=== PATIENT | male | born 1985 | race Caucasian/White ===

== ENCOUNTER 2016-09-21 15:50 | Emergency (ER) | payer SELFPAY ==
[~2016-09-21] VITALS: Wt 88.8 kg
[2016-09-21] MEDS ORDERED: ONDANSETRON (ODT) 4 MG TAB ODT STA (16:28)
[2016-09-21] MEDS ORDERED: KETOROLAC 30 MG INJ IM STA (16:28)
[2016-09-21] MEDS ORDERED: HYDROCODONE/APAP (5/325) TAB PO ONE (16:30)
[2016-09-21] MEDS ORDERED: PROPARACAINE 0.5% 15 ML OPH BOTH EYES ONE (16:30)
[2016-09-21] MEDS ORDERED: FLUORESCEIN STRIP BOTH EYES ONE (16:30)
--- NOTE | 2016-09-21 16:34 | ERA ---
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 Patient has a chief complaint of headache 12 hours. Patient has a history of headaches in the past. Patient denies worse headache of life, thunderclap headache or recent trauma. denies change in behavior or altered mental status. Patient is also complaining of getting dust/wood in his eyes at work. Patient states that it feels like there is a foreign body in his eyes at this time. Patient has not had symptoms like this before. Patient denies change in vision or eye pain. ROS All systems reviewed and are negative except as per history of present illness. Medications Home Meds Active Scripts Gentamicin Sulfate* (Gentamicin Sulfate* Ophth) 0.3% - 5 Ml Drops, 1 DROP BOTH EYES Q4 for 14 Days, EA Prov:AMADOU HA PA-C 09/21/16 Acetaminophen* (Tylophen*) 500 Mg Capsule, 1 CAP PO Q6H Y for PAIN AND OR ELEVATED TEMP, #20 CAP Prov:AMADOU HA PA-C 09/21/16 PMhx/Soc Medical and Surgical Hx: pt denies Medical Hx, pt denies Surgical Hx Hx Alcohol Use: No Hx Substance Use: No Hx Tobacco Use: No Smoking Status: Never smoker Physical Exam Vitals Vital Signs Date Time Temp Pulse Resp B/P Pulse Ox O2 Delivery O2 Flow Rate FiO2 09/21/16 15:52 98.0 68 18 132/73 99 Physical Exam Const: Well-appearing 30-year-old male with Head: Atraumatic. No sinus tenderness with palpation. Eyes: Normal Conjunctiva. PERRLA. EOMI bilaterally. Ophthalmoscope exam unremarkable with cup-to-disc ratio grossly within normal limits. ENT: Normal External Ears, Nose and Mouth. Neck: Full range of motion..~ No meningismus. Resp: Clear to auscultation bilaterally. Good chest expansion. Cardio: Regular rate and rhythm, no murmurs Abd: Soft, non tender, non distended. Normal bowel sounds Skin: No petechiae or rashes Back: No midline or flank tenderness Ext: No cyanosis, or edema. Range of motion of all extremities within normal limits Neur: Awake and alert. Cranial nerves intact. Taste and olfactory deferred ; denies change in history. Psych: Normal Mood and Affect Results 24 hrs Current Medications Medications (Trade) Dose Ordered Sig/Jeanie Route PRN Reason Start Time Stop Time Status Last Admin Dose Admin Proparacaine HCl (Alcaine 0.5%) 1 drop ONCE ONCE BOTH EYES 09/21/16 16:30 09/21/16 16:31 DC Fluorescein Sodium (Vzaoz-Z-Avzcy) 1 strip ONCE ONCE BOTH EYES 09/21/16 16:30 09/21/16 16:31 DC Acetaminophen/ Hydrocodone Bitart (Friona (5/325)) 1 tab ONCE ONCE PO 09/21/16 16:30 09/21/16 16:31 DC 09/21/16 16:56 Ketorolac Tromethamine (Toradol) 30 mg ONCE STAT IM 09/21/16 16:28 09/21/16 16:31 DC 09/21/16 16:57 Ondansetron HCl (Zofran Odt) 4 mg ONCE STAT ODT 09/21/16 16:28 09/21/16 16:31 DC 09/21/16 16:56 Procedures/MDM Patient is being worked up and evaluated for headache. Denies any environmental triggers for cause of acute headache. Denies any medications or diet. Patient signs and symptoms are most consistent with severe tension type headache. At this time a very little suspicion for intracranial hemorrhage or [employer] infection. Patient currently does not have any red flags for a CT scan. Patient was given Zofran, Toradol and Friona in the ED with resolution of headache. Patient will be discharged with acetaminophen for headache control. Patient is also complaining of foreign body entering the eye. 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 Was lamp and fluorescein was done which revealed no epithelial defects. Slit-lamp examination was done which revealed no foreign bodies. At this time I do not suspect acute angle glaucoma, corneal infection/ulcer, anterior uveitis, scleritis, superficial keratitis, hypopyon or hyphema. Patient will be given prophylactic gentamicin ophthalmic solution on discharge has been educated that the acetaminophen will cover his eye discomfort as well. Patient has been given a list of eye doctors and he can follow-up with. Have recommended he follow-up with either PCP or eye doctor within the next 1-3 days. I have spoke with the patient regarding their condition and future management. They have verbally responded that they understand their status and treatment plan. The patients vitals are stable, and their current condition is appropriate for discharge. The patient will be given discharge instructions with return precautions. Departure Diagnosis: Primary Impression: Headache Qualified Code: G44.209 - Tension-type headache, not intractable, unspecified chronicity pattern Additional Impression: Corneal abrasion of both eyes Qualified Code: S05.01XA - Corneal abrasion of both eyes, initial encounter Condition: Stable Additional Instructions: Follow up with your PCP within the next 1-3 days for a more thorough evaluation and a possible referral to a specialist. Return the the emergency department immediately if symptoms worsen or change. If you have any questions regarding medications, ask your pharmacist or us before you leave. If any adverse reactions occur while taking your medications, discontinue the treatment and return to the emergency department immediately. Take your medications as directed, and complete the entire course of treatment. AMADOU HA PA-C Sep 21, 2016 16:34
[2016-09-21] MEDS ORDERED: ACET500C5 PO (18:37)
[2016-09-21] MEDS ORDERED: GENT5DRO28 BOTH EYES (20:00)
== END 2016-09-21 20:08 | disposition home or self-care (01) ==
LOC: FTE 15:50
DX: G44.209 Tension-type headache, unspecified, not intractable (principal); S05.01XA Injury of conjunctiva and corneal abrasion without foreign body, right eye, initial encounter; X58.XXXA Exposure to other specified factors, initial encounter; Y92.89 Other specified places as the place of occurrence of the external cause
CPT/HCPCS: 96372; 99284; J1885